=== PATIENT | male | born 1950 | race Caucasian/White ===

== ENCOUNTER → 2025-02-16 10:42 | Outpatient (REF) | payer MEDICARE, SELFPAY | LOC: RAD 10:42 | PROVIDERS: ATTENDING PHYSICIAN Radiology Diagnostic Radiology; FAMILY PHYSICIAN Internal Medicine; OTHER PHYSICIAN Physical Medicine & Rehabilitation | DX: Z97.8 Presence of other specified devices (principal) | CPT/HCPCS: 72072; 72100 ==

== ENCOUNTER → 2025-04-12 10:48 | Outpatient (REF) | payer MEDICARE, SELFPAY | LOC: PAVMRI 10:48 | PROVIDERS: ATTENDING PHYSICIAN Physical Medicine & Rehabilitation; FAMILY PHYSICIAN Internal Medicine | DX: M70.61 Trochanteric bursitis, right hip (principal) | CPT/HCPCS: 73721 ==